=== PATIENT | male | born 2000 | race Caucasian/White ===

== ENCOUNTER 2018-02-20 19:48 | Emergency (ER) | payer SELFPAY ==
[2018-02-20] MEDS ORDERED: Lidocaine 2% VISCOUS* 15 ML UDC PO ONE (20:55)
[2018-02-20] MEDS ORDERED: Al Hydrox/Mg Hydrox/Simet LIQ* 30 ML UDC PO ONE (20:55)
--- NOTE | 2018-03-28 20:31 | UC ---
Throat Pain/Nasal Kt HPI - HPI Summary HPI Summary: dx with strep throat rx with PCN which is giving him nausea (worsening) - History of Current Complaint Chief Complaint: UCGI Stated Complaint: UPSET STOMACH Time Seen by Provider: 02/20/18 20:51 Hx Obtained From: Patient Onset/Duration: Sudden Onset Pain Intensity: 0 Pain Scale Used: 0-10 Numeric Cough: None Associated Signs & Symptoms: Positive: Negative - Allergies/Home Medications Allergies/Adverse Reactions: Allergies Allergy/AdvReac Type Severity Reaction Status Date / Time No Known Allergies Allergy Verified 02/20/18 20:20 PMH/Surg Hx/FS Hx/Imm Hx Previously Healthy: Yes - Surgical History Surgical History: None - Family History Known Family History: Positive: None - Social History Occupation: Student Lives: Dormitory/Roommates Alcohol Use: Weekly Substance Use Type: Marijuana Smoking Status (MU): Never Smoked Tobacco Review of Systems Constitutional: Negative Skin: Negative Eyes: Negative ENT: Sore Throat Respiratory: Negative Cardiovascular: Negative Gastrointestinal: Nausea Genitourinary: Negative Motor: Negative Neurovascular: Negative Musculoskeletal: Negative Neurological: Negative Psychological: Negative Is Patient Immunocompromised?: No All Other Systems Reviewed And Are Negative: Yes Physical Exam Triage Information Reviewed: Yes Appearance: Well-Appearing, No Pain Distress, Well-Nourished Vital Signs: Initial Vital Signs Temp 98.2 F 02/20/18 20:14 Pulse 64 02/20/18 20:14 Resp 16 02/20/18 20:14 BP 123/97 02/20/18 20:14 Pulse Ox 100 02/20/18 20:14 Vital Signs Reviewed: Yes Eye Exam: Normal Eyes: Positive: Conjunctiva Clear ENT Exam: Normal ENT: Positive: Normal ENT inspection, Hearing grossly normal, Uvula midline. Negative: Trismus, Muffled voice, Hoarse voice, Dental tenderness, Sinus tenderness Dental Exam: Normal Neck exam: Normal Neck: Positive: Supple, Nontender Respiratory Exam: Normal Respiratory: Positive: Chest non-tender, No respiratory distress, No accessory muscle use Cardiovascular Exam: Normal Cardiovascular: Positive: RRR, Pulses Normal, Brisk Capillary Refill Musculoskeletal Exam: Normal Musculoskeletal: Positive: Strength Intact, ROM Intact, No Edema Neurological Exam: Normal Neurological: Positive: Alert, Muscle Tone Normal Psychological Exam: Normal Skin Exam: Normal Throat Pain/Nasal Course/Dx - Course Assessment/Plan: Stop PCN, change to amoxiccil, follow with [facility] prn - Differential Dx/Diagnosis Provider Diagnoses: Strep Pharyngitis, nausea Discharge - Sign-Out/Discharge Documenting (check all that apply): Discharge/Admit/Transfer - Discharge Plan Condition: Stable Disposition: HOME Prescriptions: Amoxicillin PO (*) [Amoxicillin 875 MG (*)] 875 mg PO BID #20 tab Patient Education Materials: Strep Throat (ED) Forms: *School Release Referrals: [facility] [Outside] - If Needed - Billing Disposition and Condition Condition: STABLE Disposition: HOME
== END 2018-02-20 21:21 | disposition home or self-care (01) ==
LOC: UCCORT 19:48
DX: J02.0 Streptococcal pharyngitis (principal); R11.0 Nausea; T36.0X5A Adverse effect of penicillins, initial encounter; Y92.9 Unspecified place or not applicable
CPT/HCPCS: 99202; A9270-GY; G0463

== ENCOUNTER 2019-03-02 12:06 | Emergency (ER) | payer OTHER ==
[2019-03-02 13:18] VITALS: BP 137/78
--- NOTE | 2019-03-02 13:52 | UC ---
FLU HPI - HPI Summary HPI Summary: Ill since Saturday with headache, body aches, dry cough, scratchy throat, fever. - History of Current Complaint Chief Complaint: UCRespiratory Stated Complaint: ZAVALA,ST,CHILLS,BODY ACHES Time Seen by Provider: 03/02/19 13:17 Hx Obtained From: Patient Onset/Duration: Gradual Onset Severity Currently: Mild Severity Initially: Mild Pain Intensity: 6 Associated Signs & Symptoms: Positive: Fever, Myalgia, Cough, Headache Related Hx: Possible Flu/Infectious Exposure - Allergy/Home Medications Allergies/Adverse Reactions: Allergies Allergy/AdvReac Type Severity Reaction Status Date / Time No Known Allergies Allergy Verified 03/02/19 13:18 Home Medications: Home Medications Acetaminophen [Mapap] 1,000 mg PO ONCE PRN 03/02/19 [History Confirmed 03/02/19] PMH/Surg Hx/FS Hx/Imm Hx Previously Healthy: Yes - Surgical History Surgical History: Yes Surgery Procedure, Year, and Place: wisdom teeth - Family History Known Family History: Positive: None - Social History Occupation: Student Lives: Dormitory/Roommates Alcohol Use: Occasionally Substance Use Type: Marijuana Smoking Status (MU): Never Smoked Tobacco Review of Systems All Other Systems Reviewed And Are Negative: Yes Constitutional: Positive: Fever, Chills Skin: Positive: Rash - Patient has a rash on his penis she noticed on Saturday. He has had unprotected sex in the past. ENT: Positive: Sore Throat - Scratchy throat. Respiratory: Positive: Cough - Dry nonproductive cough. Is Patient Immunocompromised?: No Physical Exam Triage Information Reviewed: Yes Appearance: Well-Appearing, No Pain Distress, Well-Nourished Vital Signs: Initial Vital Signs Temp 100.3 F 03/02/19 13:14 Pulse 100 03/02/19 13:14 Resp 18 03/02/19 13:14 BP 137/78 03/02/19 13:14 Pulse Ox 100 03/02/19 13:14 Vital Signs Reviewed: Yes Eye Exam: Normal ENT: Positive: Pharyngeal erythema - Very mild erythema both tonsils, exudate., TMs normal, Tonsillar swelling, Uvula midline. Negative: Tonsillar exudate, Trismus, Muffled voice, Hoarse voice Neck exam: Normal Neck: Positive: Supple, Nontender, Enlarged Nodes @ - Mild bilateral tonsillar lymph node enlargement. Respiratory Exam: Normal Cardiovascular Exam: Normal Abdominal Exam: Normal Bowel Sounds: Positive: Present Male Genital Exam: Positive: Normal Genitalia, Lesions - Patient has 4 lesions on shaft of his penis 2 of them are scabbed over, 1 appears more like a papule another one appears more like a molluscum. Lactic drainage, no penile discharge. Musculoskeletal Exam: Normal Neurological Exam: Normal Psychological Exam: Normal Skin: Positive: Rashes - See notes above. Flu Course/Dx - Course Course Of Treatment: 18 -year-old college student who has had flulike symptoms since Saturday. He also had a rash on his penis which he was concerned about because he has had unprotected sex. No drainage from the lesions. He was quite anxious about this because he had googled penile lesions and was quite concerned that perhaps he had a sexual transmitted disease. He did request HIV testing. To his knowledge his sexual partner does not have any lesions. He was referred to the [facility] reproductive health for further STD testing. In the meantime for the flulike illness he can increase fluids, rest take Tylenol for fever as directed or Motrin as directed. He may follow-up at the [facility] if no improvement in those symptoms. The lesions were also rechecked by Dr. Janene Puentes and felt to not be herpetic at this point in time. - Differential Dx/Diagnosis Provider Diagnosis: URI (upper respiratory infection), Rash and nonspecific skin eruption Discharge - Sign-Out/Discharge Documenting (check all that apply): Patient Departure All imaging exams completed and their final reports reviewed: No Studies - Discharge Plan Condition: Fair Disposition: HOME Patient Education Materials: Upper Respiratory Infection (DC) Forms: *School Release Referrals: [facility] [Outside] No Primary Care Phys,NOPCP [Primary Care Provider] - LEONARDA BELL [[employer], [employer], OTHER] - Additional Instructions: Rest, increase fluids, Tylenol every 4 hours for fever or pain and Motrin every 8 hours for fever. Follow up at the [facility] if no improvement in 3 or 4 days. - Billing Disposition and Condition Condition: FAIR Disposition: Home - Attestation Statements Provider Attestation: I was available for consult. This patient was seen by the [facility]. The patient was not presented to, seen by, or examined by me. -Raj
== END 2019-03-02 14:09 | disposition home or self-care (01) ==
LOC: UCCORT 12:06
DX: J06.9 Acute upper respiratory infection, unspecified (principal); R21 Rash and other nonspecific skin eruption
CPT/HCPCS: 36415; 86703; 87651; 99211; G0463

== ENCOUNTER 2019-03-03 13:49 | Emergency (ER) | payer OTHER ==
[2019-03-03 14:33] VITALS: BP 128/68
--- NOTE | 2019-03-03 14:37 | UC ---
Throat Pain/Nasal Kt HPI - HPI Summary HPI Summary: 18 -year-old male college student who was seen here yesterday for pharyngitis and had a negative strep test. He states his throat feels worse today and he now has some white spots on it. - History of Current Complaint Chief Complaint: UCRespiratory Stated Complaint: SORE/SPOTS ON THROAT Time Seen by Provider: 03/03/19 14:33 Hx Obtained From: Patient Onset/Duration: Gradual Onset Severity: Moderate Pain Intensity: 7 Cough: None Associated Signs & Symptoms: Positive: Fever - Epiglottits Risk Factors Epiglottis Risk Factors: Negative - Allergies/Home Medications Allergies/Adverse Reactions: Allergies Allergy/AdvReac Type Severity Reaction Status Date / Time No Known Allergies Allergy Verified 03/03/19 14:27 PMH/Surg Hx/FS Hx/Imm Hx Previously Healthy: Yes - Surgical History Surgical History: Yes Surgery Procedure, Year, and Place: wisdom teeth - Family History Known Family History: Positive: None, Non-Contributory - Social History Occupation: Student Lives: Dormitory/Roommates Alcohol Use: Occasionally Substance Use Type: Marijuana Smoking Status (MU): Never Smoked Tobacco Review of Systems All Other Systems Reviewed And Are Negative: Yes Constitutional: Positive: Fever ENT: Positive: Sore Throat Is Patient Immunocompromised?: No Physical Exam Triage Information Reviewed: Yes Appearance: Well-Appearing, No Pain Distress, Well-Nourished Vital Signs: Initial Vital Signs Temp 98.8 F 03/03/19 14:28 Pulse 95 03/03/19 14:28 Resp 20 03/03/19 14:28 BP 128/68 03/03/19 14:28 Pulse Ox 98 03/03/19 14:28 Vital Signs Reviewed: Yes Eye Exam: Normal ENT: Positive: Pharyngeal erythema, TMs normal, Tonsillar swelling, Tonsillar exudate, Uvula midline. Negative: Trismus, Muffled voice, Hoarse voice Respiratory Exam: Normal Cardiovascular Exam: Normal Abdominal Exam: Normal Bowel Sounds: Positive: Present Musculoskeletal Exam: Normal Neurological Exam: Normal Psychological Exam: Normal Skin Exam: Normal Throat Pain/Nasal Course/Dx - Course Course Of Treatment: I am going to treat the pt for tonsillitis with Amoxicillin since his symptoms are worse today and his throat exam is worse. - Differential Dx/Diagnosis Provider Diagnosis: Tonsillitis Discharge - Sign-Out/Discharge Documenting (check all that apply): Patient Departure All imaging exams completed and their final reports reviewed: Yes - Discharge Plan Condition: Fair Disposition: HOME Prescriptions: Amoxicillin PO (*) [Amoxicillin 875 MG (*)] 875 mg PO BID 10 Days #20 tab Patient Education Materials: Tonsillitis (ED) Forms: *School Release Referrals: No Primary Care Phys,NOPCP [Primary Care Provider] - LEONARDA BELL [[employer], [employer], OTHER] - Additional Instructions: Increase fluids, take Tylenol every 4 hours and Motrin every 8 hours for fever as needed. Rest, change her toothbrush in 24 hours, follow-up at the [facility] if no improvement in 3 or 4 days. - Billing Disposition and Condition Condition: FAIR Disposition: Home
== END 2019-03-03 14:46 | disposition home or self-care (01) ==
LOC: UCCORT 13:49
DX: J03.90 Acute tonsillitis, unspecified (principal)
CPT/HCPCS: 99212; G0463